=== PATIENT | male | born 1990 | race African-American/Black ===

== ENCOUNTER 2023-04-20 09:57 | Outpatient (CLI) | payer OTHER ==
[2023-04-20 12:07] LABS: ESTIMATED AVERAGE GLUCOSE 74 mg/dL (70-100); HEMOGLOBIN A1c% 4.2 % (4.27-6.07)
[2023-04-20 12:08] LABS: PSA FREE 0.315 ng/mL (0.16-2.81)
[2023-04-20 12:09] LABS: PSA TOTAL 0.44 ng/mL (0.000-2.000)
[2023-04-21 22:07] LABS: FREE TESTOSTERONE(DIRECT) 11.8 pg/mL (8.7-25.1)
== END 2023-04-20 09:58 | disposition home or self-care (01) ==
LOC: LAB.N 09:57
PROVIDERS: ATTEND Registered Nurse
DX: N52.9 Male erectile dysfunction, unspecified (principal)
CPT/HCPCS: 36415; 83036; 84153; 84154; 84402; 84403

== ENCOUNTER 2023-04-20 10:04 | Outpatient (CLI) | payer OTHER ==
--- NOTE | 2023-04-20 11:13 | XRAY Report ---
PROCEDURE: Lumbar Spine 2 View INDICATIONS: PARESTHESIA, BACK PAIN LUMBAR TECHNIQUE: 3 views of the lumbar spine were acquired. COMPARISON: None. FINDINGS: Bones: 5 lumbar-type vertebral bodies. No traumatic subluxation. Minimal degenerative changes. No acu te vertebral body height loss. Soft tissues: No suspicious calcifications. IMPRESSION: No acute radiographic abnormality. There are minimal degenerative changes. If there is high concern f or further derangement, consider MRI evaluation. Reviewed by: Kev Garvey MD on 04/20/2023 11:12 AM PDT Approved by: Kev Garvey MD on 04/20/2023 11:12 AM PDT Station ID: [id number]
== END 2023-04-20 10:05 | disposition home or self-care (01) ==
LOC: DI.N 10:04
PROVIDERS: ATTEND Registered Nurse
DX: R20.2 Paresthesia of skin (principal); M47.816 Spondylosis without myelopathy or radiculopathy, lumbar region; N52.9 Male erectile dysfunction, unspecified
CPT/HCPCS: 36415; 83036; 84153; 84154; 84402; 84403

== ENCOUNTER 2023-09-25 08:19 | Outpatient (CLI) | payer OTHER ==
--- NOTE | 2023-09-25 16:08 | MRI Report ---
PROCEDURE: ANKLE WO - RT INDICATIONS: RIGHT ANKLE PAIN TECHNIQUE: Noncontrast Magnetic Resonance Imaging (MRI) of the ankle/hindfoot was performed utilizing the follow ing sequences: sagittal T1 spin echo, sagittal T2 fast spin echo with fat saturation, axial PD fast s pin echo, axial T2 fast spin echo with fat saturation, coronal T1 spin echo, and coronal T2 fast spin echo with fat saturation. COMPARISON: None. FINDINGS: Image quality: Excellent. Bones and joints: No acute trabecular bone injury or fracture. No hindfoot coalition. Chronic glass attenuation is seen at the medial talar dome measuring 9 x 6 x 17 mm. There is mild subchondral edema and cystic changes and irregularity of the subchondral plate is seen with overlying full-thickness cartilage loss. Mild degenerative spurring of the dorsal aspect of the talonavicular and naviculocuneiform articulations. A small nonedematous ossification is seen adjacent to the distal fibular tip. Medial structures: The deltoid ligament and the spring ligament complex are intact. The posterior tibialis, flexor digit orum longus, and flexor hallucis longus tendons are intact. The posterior tibial neurovascular bundle appears normal within the tarsal tunnel, without extrinsic mass effect. Lateral structures: Mild thickening of the anterior tibiofibular ligament is compatible with a remote prior low-grade spr ain. The posterior tibiofibular ligament is intact. Remote prior sprains of the anterior talofibular ligament and calcaneofibular ligament. The posterior talofibular ligament is intact. The peroneus britany vis and longus tendons demonstrate mild to moderate tendinosis. The sinus tarsi demonstrates normal f atty signal. Anterior structures: The tibialis anterior, extensor hallucis longus, and extensor digitorum longus tendons appear intact. Posterior and plantar structures: The Achilles tendon is intact. The proximal plantar fascia is intact. No disproportionate atrophy of the abductor digiti minimi muscle. IMPRESSION: 1.Chronic osteochondral lesion is seen at the medial talar dome measuring 9 x 6 x 17 mm with full-thi ckness cartilage loss and irregularity of the subchondral plate as well as mild surrounding osseous e rakan. No definite loose osteochondral fragment is seen. 2.Remote prior low-grade sprains of the anterior talofibular ligament and calcaneofibular ligament as well as the anterior tibiofibular ligament. 3.Mild to moderate peroneus brevis and longus tendinosis. 4.Mild talonavicular and naviculocuneiform degenerative changes. Reviewed by: Alex Kim MD on 09/25/2023 4:06 PM PST Approved by: Alex Kim MD on 09/25/2023 4:06 PM PST Station ID: [id number]
== END 2023-09-25 08:20 | disposition home or self-care (01) ==
LOC: DI 08:19
DX: M94.271 Chondromalacia, right ankle and joints of right foot (principal); R93.7 Abnormal findings on diagnostic imaging of other parts of musculoskeletal system; S93.491D Sprain of other ligament of right ankle, subsequent encounter; S93.411D Sprain of calcaneofibular ligament of right ankle, subsequent encounter; M67.873 Other specified disorders of tendon, right ankle and foot; M19.071 Primary osteoarthritis, right ankle and foot

== ENCOUNTER 2023-10-20 08:42 | Outpatient (CLI) | payer OTHER ==
--- NOTE | 2023-10-23 07:23 | MRI Report ---
PROCEDURE: LUMBAR SPINE WO INDICATIONS: LOW BACK PAIN TECHNIQUE: Noncontrast sagittal T1 spin echo and T2 fast echo, sagittal STIR, axial T1 and T2 fast spin echo thr ough the lumbar spine. In cases with scoliosis, additional coronal T2 fast spin echo may be performe d. COMPARISON: Lumbar spine plain films dated 04/20/2023. FINDINGS: Image quality: Excellent. Alignment and Curvature: There is normal bony alignment. Bone Marrow: Marrow is of normal overall signal. No acute vertebral body compression fractures. Spinal Cord: Conus medullaris terminates at the L2 level. Visualized cord demonstrates normal signa l and size. Paraspinous Soft Tissues: No paravertebral masses. T12-L1: Normal in appearance. L1-L2: Normal in appearance. L2-L3: Normal in appearance. L3-L4: Normal in appearance. L4-L5: Mild disc bulge. Minimal facet hypertrophy. Borderline canal stenosis. No foraminal stenosis . L5-S1: Mild disc bulge. Mild facet hypertrophy. No canal stenosis. Moderate right foraminal stenosi s with mild flattening deformity on the inferior aspect of the exiting right L5 nerve root. Mild to m oderate left foraminal narrowing. IMPRESSION: 1. There is mild lower lumbar facet arthropathy. 2. Borderline canal stenosis at L4-L5. 3. Moderate foraminal stenosis at L5-S1. Reviewed by: Nirmal Farnsworth MD on 10/23/2023 7:22 AM PST Approved by: Nirmal Farnsworth MD on 10/23/2023 7:22 AM PST Station ID: [id number]
--- NOTE | 2023-10-23 07:58 | MRI Report ---
PROCEDURE: THORACIC SPINE WO INDICATIONS: THORACIC PAIN TECHNIQUE: Noncontrast sagittal T1 spine echo and T2 fast spin echo, sagittal STIR, axial T1 and T2 fast spin ec ho through the thoracic spine. COMPARISON: Lumbar spine MRI from the same date. FINDINGS: Image quality: Excellent. Alignment and Curvature: There is normal bony alignment. Bone Marrow: Marrow is of normal overall signal. No acute vertebral body compression fractures. Spinal Cord: Visualized spinal cord is normal in size and signal. Paraspinous Soft Tissues: No paravertebral masses. Miscellaneous: On axial images, central canal and foramina appear widely patent at all scanned level s. IMPRESSION: Unremarkable thoracic spine MRI. No canal stenosis or foraminal stenosis. Normal thoraci c cord signal characteristics. Reviewed by: Nirmal Farnsworth MD on 10/23/2023 7:57 AM PST Approved by: Nirmal Farnsworth MD on 10/23/2023 7:57 AM PST Station ID: [id number]
== END 2023-10-20 08:43 | disposition home or self-care (01) ==
LOC: DI 08:42
DX: M54.6 Pain in thoracic spine (principal); M47.816 Spondylosis without myelopathy or radiculopathy, lumbar region; M48.061 Spinal stenosis, lumbar region without neurogenic claudication; M48.07 Spinal stenosis, lumbosacral region

== ENCOUNTER 2023-11-05 13:36 | Outpatient (CLI) | payer OTHER | END 2023-11-05 13:37 | disposition home or self-care (01) | LOC: RT 13:36 | DX: Z77.090 Contact with and (suspected) exposure to asbestos (principal) | CPT/HCPCS: 94060; 94729 ==

== ENCOUNTER 2024-03-31 12:04 | Emergency (ER) | payer MEDICAID, OTHER ==
--- NOTE | 2024-03-31 12:30 | ED Physician Documentation ---
PD HPI MHE - Stated complaint Stated Complaint: MHE - Chief complaint Chief Complaint: MHE - History obtained from History obtained from: Patient - History of Present Illness Primary symptom: Suicidal ideation - Additional information Additional information: 33-year-old male presents with passive suicidal ideation. Patient states he called the crisis line last night and they referred him to the emergency department, but he did not come until today. Patient states today he feels much better. He denies any current plans to harm himself. Review of Systems Constitutional: denies: Fever, Chills Cardiac: denies: Chest pain / pressure, Palpitations, Calf pain Respiratory: denies: Dyspnea, Cough, Wheezing GI: denies: Abdominal Pain, Nausea, Vomiting, Constipation, Diarrhea Neurologic: denies: Generalized weakness, Focal weakness, Numbness Psychiatric: reports: Depressed, Anxiety. denies: Suicidal, Homicidal, Hallucinations, Delusions PD PAST MEDICAL HISTORY - Past Medical History Past Medical History: Yes Cardiovascular: None Respiratory: None Neuro: Headaches, Migraines Endocrine/Autoimmune: None GI: None : None HEENT: None Psych: Depression Musculoskeletal: None Derm: None - Past Surgical History Past Surgical History: No - Allergies Allergies/Adverse Reactions: Allergies Allergy/AdvReac Type Severity Reaction Status Date / Time No Known Drug Allergies Allergy Verified 03/31/24 15:32 - Social History Does the pt smoke?: No Smoking Status: Never smoker Does the pt drink ETOH?: No Does the pt have substance abuse?: No - Immunizations Immunizations are current?: Yes - POLST Patient has POLST: No PD ED PE NORMAL - Vitals Vital signs reviewed: Yes - General General: Alert and oriented X 3, No acute distress, Well developed/nourished - Neck Neck: Supple, no meningeal sign - Cardiac Cardiac: RRR, Strong equal pulses - Respiratory Respiratory: No respiratory distress, Clear bilaterally - Abdomen Abdomen: Soft, Non tender, Non distended - Derm Derm: Normal color, Warm and dry, No rash - Neuro Neuro: Alert and oriented X 3, tallier 2-12 intact, No motor deficit, Normal speech - Psych Psych: Normal mood, Normal affect, Other (somewhat guarded on exam) Results - Vitals Vitals: Oxygen O2 Source Room air - Labs Labs: Laboratory Tests 03/31/24 03/31/24 03/31/24 12:43 12:43 12:55 WBC 4.8 RBC 4.75 Hgb 15.5 Hct 45.5 MCV 95.8 H MCH 32.6 H MCHC 34.1 RDW 11.6 L Plt Count 161 MPV 10.8 Neut # (Auto) 1.9 Lymph # (Auto) 2.3 [place] # (Auto) 0.3 Eos # (Auto) 0.2 Baso # (Auto) 0.1 Absolute Nucleated RBC 0.00 Nucleated RBC % 0.0 Sodium 139 Potassium 4.3 Chloride 104 Carbon Dioxide 31 Anion Gap 4.0 L BUN 9 Creatinine 1.1 Estimated GFR (MDRD) 93 Glucose 96 Calcium 10.5 H Total Bilirubin 1.5 H AST 51 H ALT 27 Alkaline Phosphatase 55 Total Protein 6.6 Albumin 4.7 Globulin 1.9 L Albumin/Globulin Ratio 2.5 H Urine Color YELLOW Urine Clarity CLEAR Urine pH 7.0 Ur Specific [place] 1.015 Urine Protein NEGATIVE Urine Glucose (UA) NEGATIVE Urine Ketones NEGATIVE Urine Occult Blood NEGATIVE Urine Nitrite NEGATIVE Urine Bilirubin NEGATIVE Urine Urobilinogen 0.2 (NORMAL) Ur Leukocyte Esterase NEGATIVE Ur Microscopic Review NOT INDICATED Urine Culture Comments NOT INDICATED Salicylates < 1.5 Urine Opiates Screen NEGATIVE Ur Buprenorphine Scrn NEGATIVE Ur Oxycodone Screen NEGATIVE Urine Methadone Screen NEGATIVE Acetaminophen 0.3 Ur Barbiturates Screen NEGATIVE Ur Tricyclics Screen NEGATIVE Ur Phencyclidine Scrn NEGATIVE Ur Amphetamine Screen NEGATIVE U Methamphetamines Scrn NEGATIVE U Benzodiazepines Scrn NEGATIVE Urine Cocaine Screen NEGATIVE U Cannabinoids Screen NEGATIVE Ur Drug Screen Comment CUTOFF CONC BELOW: Ethyl Alcohol < 10.0 SARS-CoV-2 (PCR) 03/31/24 12:55 WBC RBC Hgb Hct MCV MCH MCHC RDW Plt Count MPV Neut # (Auto) Lymph # (Auto) [place] # (Auto) Eos # (Auto) Baso # (Auto) Absolute Nucleated RBC Nucleated RBC % Sodium Potassium Chloride Carbon Dioxide Anion Gap BUN Creatinine Estimated GFR (MDRD) Glucose Calcium Total Bilirubin AST ALT Alkaline Phosphatase Total Protein Albumin Globulin Albumin/Globulin Ratio Urine Color Urine Clarity Urine pH Ur Specific [place] Urine Protein Urine Glucose (UA) Urine Ketones Urine Occult Blood Urine Nitrite Urine Bilirubin Urine Urobilinogen Ur Leukocyte Esterase Ur Microscopic Review Urine Culture Comments Salicylates Urine Opiates Screen Ur Buprenorphine Scrn Ur Oxycodone Screen Urine Methadone Screen Acetaminophen Ur Barbiturates Screen Ur Tricyclics Screen Ur Phencyclidine Scrn Ur Amphetamine Screen U Methamphetamines Scrn U Benzodiazepines Scrn Urine Cocaine Screen U Cannabinoids Screen Ur Drug Screen Comment Ethyl Alcohol SARS-CoV-2 (PCR) NOT DETECTED PD Medical Decision Making - ED course Complexity details: reviewed results, re-evaluated patient, considered differential, d/w patient ED course: Patient presenting after calling the suicide hotline yesterday for help. Recently out of the [place] and reports some stress around this development. Patient is somewhat guarded on exam, he states that "he feels much better today", but does not go into detail on what exactly happened yesterday or what his plan was. Patient medically cleared, social work graciously evaluated patient at bedside. Safety planning made with social work and patient at bedside. Resources for assistance provided to patient. ED return precautions discussed at bedside Departure - Departure Disposition: 01 Home, Self Care Clinical Impression: Depression Condition: Stable Instructions: ED Depression Comments: Follow up with your primary care doctor. Call [phone] if you experience a mental health crisis. Forms: PCP List Discharge Date/Time: 03/31/24 15:55
[2024-03-31 12:52] LABS: BASOPHILS # (AUTO) 0.1 10^3/uL (0.0-0.1); EOSINOPHILS # (AUTO) 0.2 10^3/uL (0.0-0.7); EOSINOPHILS % (AUTO) 3.5 %; HCT - HEMATOCRIT 45.5 % (42.0-52.0); HGB - HEMOGLOBIN 15.5 g/dL (14.0-18.0); LYMPHOCYTES # (AUTO) 2.3 10^3/uL (1.5-3.5); MEAN CORPUSCULAR HEMOGLOBIN 32.6 pg (27.0-31.0); MEAN CORPUSCULAR HGB CONC 34.1 g/dL (32.0-36.0); MEAN CORPUSCULAR VOLUME 95.8 fL (80.0-94.0); MEAN PLATELET VOLUME 10.8 fL (7.4-11.4); MONOCYTES # (AUTO) 0.3 10^3/uL (0.0-1.0); MONOCYTES % (AUTO) 6.7 %; NEUTROPHILS # (AUTO) 1.9 10^3/uL (1.5-6.6); NEUTROPHILS % (AUTO) 40.6 %; PLT - PLATELET COUNT 161 10^3/uL (130-450); RED BLOOD COUNT 4.75 10^6/uL (4.70-6.10); RED CELL DISTRIBUTION WIDTH 11.6 % (12.0-15.0); WHITE BLOOD COUNT 4.8 x10^3/uL (4.8-10.8)
[2024-03-31 13:06] LABS: ACETAMINOPHEN 0.3 ug/mL; ALBUMIN 4.7 g/dL (3.2-5.5); ALBUMIN/GLOBULIN RATIO 2.5 (1.0-2.2); ALKALINE PHOSPHATASE 55 IU/L (42-121); ALT ALANINE AMINOTRANSFERASE 27 IU/L (10-60); AST ASPARTATE AMINOTRANSFERASE 51 IU/L (10-42); BILIRUBIN,TOTAL 1.5 mg/dL (0.2-1.0); BUN - BLOOD UREA NITROGEN 9 mg/dL (6-20); CALCIUM 10.5 mg/dL (8.5-10.3); CARBON DIOXIDE - CO2 31 mmol/L (21-32); CHLORIDE 104 mmol/L (101-111); CREATININE 1.1 mg/dL (0.6-1.3); ETOH - ETHANOL < 10.0 mg/dL; GFR - MDRD 93 (>89); GLUCOSE 96 mg/dL (74-104); POTASSIUM 4.3 mmol/L (3.5-4.5); SODIUM 139 mmol/L (135-145); TOTAL PROTEIN 6.6 g/dL (6.4-8.9)
[2024-03-31 13:16] LABS: BILIRUBIN,URINE NEGATIVE (NEGATIVE); GLUCOSE, URINE (UA) NEGATIVE (NEGATIVE); KETONES,URINE (UA) NEGATIVE (NEGATIVE); LEUKOCYTE ESTERASE, URINE NEGATIVE (NEGATIVE); NITRITE,URINE NEGATIVE (NEGATIVE); OCCULT BLOOD,URINE NEGATIVE (NEGATIVE); PROTEIN,URINE NEGATIVE (NEGATIVE); UROBILINOGEN,URINE 0.2 (NORMAL) E.U./dL (NORMAL)
[2024-03-31 13:18] LABS: CLARITY,URINE CLEAR (CLEAR)
[2024-03-31 13:20] LABS: SALICYLATE < 1.5 mg/dL
[2024-03-31 13:44] LABS: AMPHETAMINE SCREEN,URINE NEGATIVE (NEGATIVE); BARBITURATE SCREEN,UR NEGATIVE (NEGATIVE); BENZODIAZEPINES SCREEN, URINE NEGATIVE (NEGATIVE); BUPRENORPHINE SCREEN, URINE NEGATIVE (NEGATIVE); COCAINE SCREEN URINE NEGATIVE (NEGATIVE); METHADONE SCREEN, URINE NEGATIVE (NEGATIVE); METHAMPHETAMINES SCREEN, URINE NEGATIVE (NEGATIVE); OPIATE SCREEN, URINE NEGATIVE (NEGATIVE); OXYCODONE SCREEN, URINE NEGATIVE (NEGATIVE); THC CANNABINOID SCREEN, URINE NEGATIVE (NEGATIVE); TRICYCLIC ANTIDEPRESSANT,URINE NEGATIVE (NEGATIVE)
[2024-03-31 16:14] VITALS: BP 138/76; O2SAT 98
== END 2024-03-31 15:55 | disposition home or self-care (01) ==
LOC: ED 12:04
DX: F32.A Depression, unspecified (principal)
CPT/HCPCS: 36415; 80053; 80143; 80179; 80306; 81001; 81003; 82077; 85025; 87086; 87635; 99283